=== PATIENT | female | born 1935 | race Caucasian/White ===

== ENCOUNTER 2022-05-27 11:42 | Outpatient (REF) | payer MEDICARE, SELFPAY | END 2022-05-27 11:43 | disposition home or self-care (01) | LOC: HO.MDS 11:42 | PROVIDERS: Visit Provider Internal Medicine Medical Oncology | DX: D50.9 Iron deficiency anemia, unspecified (principal) | CPT/HCPCS: 96365; J2916 ==

== ENCOUNTER 2022-06-03 08:07 | Outpatient (REF) | payer MEDICARE, SELFPAY | END 2022-06-03 08:08 | disposition home or self-care (01) | LOC: HO.MDS 08:07 | PROVIDERS: Visit Provider Internal Medicine Medical Oncology | DX: D50.9 Iron deficiency anemia, unspecified (principal) | CPT/HCPCS: 96365; J2916 ==

== ENCOUNTER 2022-06-18 08:27 | Outpatient (REF) | payer MEDICARE, SELFPAY | END 2022-06-18 08:28 | disposition home or self-care (01) | LOC: HO.MDS 08:27 | PROVIDERS: Visit Provider Internal Medicine Medical Oncology | DX: D50.9 Iron deficiency anemia, unspecified (principal) | CPT/HCPCS: 96365; J2916 ==

== ENCOUNTER 2022-06-25 09:34 | Outpatient (REF) | payer MEDICARE, SELFPAY | END 2022-06-25 09:35 | disposition home or self-care (01) | LOC: HO.MDS 09:34 | PROVIDERS: Visit Provider Internal Medicine Medical Oncology | DX: D50.9 Iron deficiency anemia, unspecified (principal) | CPT/HCPCS: 96365; J2916 ==

== ENCOUNTER → 2022-07-22 11:57 | Outpatient (BNVA) | payer MEDICARE, SELFPAY | PROVIDERS: PCP Internal Medicine; Visit Provider Internal Medicine | DX: D50.9 Iron deficiency anemia, unspecified (principal) | CPT/HCPCS: 99202 ==

== ENCOUNTER 2022-07-30 14:14 | Outpatient (REF) | payer MEDICARE, SELFPAY | END 2022-07-30 14:15 | disposition home or self-care (01) | LOC: HO.MDS 14:14 | PROVIDERS: Visit Provider Internal Medicine Medical Oncology | DX: D50.9 Iron deficiency anemia, unspecified (principal) | CPT/HCPCS: 96365; J1756 ==

== ENCOUNTER 2022-08-06 07:59 | Outpatient (REF) | payer MEDICARE, SELFPAY | END 2022-08-06 08:00 | disposition home or self-care (01) | LOC: HO.MDS 07:59 | PROVIDERS: Visit Provider Internal Medicine Medical Oncology | DX: D50.9 Iron deficiency anemia, unspecified (principal) | CPT/HCPCS: 96365; J1756 ==

== ENCOUNTER 2022-08-15 08:06 | Outpatient (REF) | payer MEDICARE, SELFPAY | END 2022-08-15 08:07 | disposition home or self-care (01) | LOC: HO.MDS 08:06 | PROVIDERS: Visit Provider Internal Medicine Medical Oncology | DX: D50.9 Iron deficiency anemia, unspecified (principal) | CPT/HCPCS: 96365; J1756 ==

== ENCOUNTER 2022-08-20 07:55 | Outpatient (REF) | payer MEDICARE, SELFPAY | END 2022-08-20 07:56 | disposition home or self-care (01) | LOC: HO.MDS 07:55 | PROVIDERS: Visit Provider Internal Medicine Medical Oncology | DX: D50.9 Iron deficiency anemia, unspecified (principal) | CPT/HCPCS: 96365; J1756 ==

== ENCOUNTER 2022-09-10 12:27 | Outpatient (REF) | payer MEDICARE, SELFPAY | END 2022-09-10 12:28 | disposition home or self-care (01) | LOC: HO.MDS 12:27 | PROVIDERS: Visit Provider Internal Medicine Medical Oncology | DX: D50.9 Iron deficiency anemia, unspecified (principal) | CPT/HCPCS: 96365; J1756 ==

== ENCOUNTER 2022-09-17 07:37 | Outpatient (REF) | payer MEDICARE, SELFPAY ==
[2022-09-17 08:10] LABS: Hematocrit 33.2 % (37.0-47.0); Hemoglobin 11.1 g/dl (12.0-16.0); Mean Corpuscular HGB Conc 33.4 g/dl (31.0-35.0); Mean Corpuscular Hemoglobin 28.4 pg (27.0-33.0); Mean Corpuscular Volume 84.9 fL (80.0-98.0); Mean Platelet Volume 9.4 fL (9.4-12.3); Platelet Count 266 X10*3/uL (160-400); Red Blood Count 3.91 X10*6/uL (4.20-5.50); Red Cell Distribution Width 15.5 % (11.0-16.0); White Blood Count 9.2 X10*3/uL (4.8-10.8)
== END 2022-09-17 07:38 | disposition home or self-care (01) ==
LOC: HO.MDS 07:37
PROVIDERS: Visit Provider Internal Medicine Medical Oncology
DX: D50.9 Iron deficiency anemia, unspecified (principal)
CPT/HCPCS: 36415; 85027; 96365; J1756

== ENCOUNTER 2022-10-31 07:50 | Day surgery (SDC) | payer MEDICARE, SELFPAY ==
--- NOTE | 2022-10-31 07:29 | P.CONAN_ITS ---
HPI - Anesthesia Eval Consult details Narrative: egd colon PMFSH Active Problems Active Problems: All Active Problems (Updated 10/29/22 @ 11:48 by Brittni Betancourt MD) Hypokalemia (Acute) Microcytic hypochromic anemia (Acute) Past Medical History Medical History (Updated 10/29/22 @ 11:48 by Brittni Betancourt MD) Diabetes Diverticulosis GERD (gastroesophageal reflux disease) HTN (hypertension) Hypercholesterolemia Hypothyroid Iron deficiency Family History Family History Mother Thoracic cancer Father Pancreatic cancer Maternal Aunt Breast cancer Family history of problems with anesthesia: No Surgical History Surgical History (Updated 10/24/22 @ 12:33 by Yanna Gilbert, RN) H/O colonoscopy History of esophagogastroduodenoscopy (EGD) Hx of cholecystectomy Hx of lithotripsy History of Problems with Anesthesia: No Social History Social History (Updated 10/24/22 @ 12:41 by Yanna Gilbert, RN) Household Members: None Housing: Apartment Are you a primary assurance services manager health care to a significant other at home: No Do you presently have visiting nurse or other home services: No Patient Tobacco Use Status: Former Tobacco user Quit Date: age 36 Tobacco use type: Cigarette service: No Current occupational status: retired Meds Allergies Allergy/AdvReac Type Severity Reaction Status Date / Time codeine Allergy Stomach Verified 08/22/22 11:07 Upset Home Medications Medication Instructions Recorded Confirmed Last Taken Type aspirin 81 mg tablet,delayed 81 mg PO DAILY 05/13/22 10/24/22 Unknown History release atorvastatin 40 mg tablet 1 tab PO DAILY 05/13/22 10/24/22 Unknown History brimonidine 0.2 % eye drops 1 drp ophthalmic-Right BID 05/13/22 10/24/22 Unknown History carvedilol 6.25 mg tablet 1 tab PO BID 05/13/22 10/24/22 Unknown History dorzolamide 2 % eye drops 1 drp ophthalmic (eye) Q12H 05/13/22 10/24/22 Unknown History insulin degludec 100 unit/mL (3 44 unit subcut DAILY 05/13/22 10/24/22 Unknown History mL) subcutaneous pen (Tresiba FlexTouch U-100 insulin) latanoprost 0.005 % eye drops 1 drp ophthalmic (eye) QPM 05/13/22 10/24/22 Unknown History levothyroxine 75 mcg tablet 1 tab PO DAILY 05/13/22 10/24/22 Unknown History (Synthroid) lisinopril 20 1 tab PO DAILY 05/13/22 10/24/22 Unknown History mg-hydrochlorothiazide 12.5 mg tablet metformin 500 mg tablet 1 tab PO BID 05/13/22 10/24/22 Unknown History pantoprazole 40 mg tablet,delayed 1 tab PO DAILY 05/13/22 10/24/22 Unknown History release semaglutide 0.25 mg or 0.5 mg (2 0.5 mg subcut QWEEK 05/13/22 10/24/22 Unknown History mg/1.5 mL) subcutaneous pen injector (Ozempic) timolol maleate 0.5 % eye drops 1 drp ophthalmic-Right Q12H 05/13/22 10/24/22 Unknown History Exam Exam Date and Time: October 31, 2022 0729 Airway Mallampati Class: II TM Dist: >3cm Heart: rr Lungs: cta Assessment and Plan Final Anesthetic Review Family History of Problems with Anesthesia: No History of Problems with Anesthesia: No NPO: Yes ASA Class: II Final Preanesthetic Review: No Changes in Pt Med Stat, Meds/Allgs Chart Reviewed, Consent Obtained/Reviewed and Anes Risks/Benef Reviewed Patient Risk: Low Procedure Risk: Low Anesthetic Plan Anesthetic Plan: MAC: Disposition: Standard PACU
[2022-10-31 07:51] VITALS: BMI 23.2
[2022-10-31] MEDS: Lactated Ringers 1,000 ML 50 ML IVCONT (08:08)
[2022-10-31 08:10] LABS: Hematocrit 28.9 % (37.0-47.0); Hemoglobin 9.9 g/dl (12.0-16.0); Mean Corpuscular HGB Conc 34.3 g/dl (31.0-35.0); Mean Corpuscular Hemoglobin 29.8 pg (27.0-33.0); Mean Platelet Volume 9.3 fL (9.4-12.3); Platelet Count 290 X10*3/uL (160-400); Red Blood Count 3.32 X10*6/uL (4.20-5.50); Red Cell Distribution Width 13.9 % (11.0-16.0); White Blood Count 12.5 X10*3/uL (4.8-10.8)
--- NOTE | 2022-10-31 08:10 | HO.ANESPROP2 ---
[facility] Active Problems Active Problems: All Active Problems (Updated 10/29/22 @ 11:48 by Brittni Betancourt MD) Hypokalemia (Acute) Microcytic hypochromic anemia (Acute) Past Medical History Medical History (Updated 10/29/22 @ 11:48 by Brittni Betancourt MD) Diabetes Diverticulosis GERD (gastroesophageal reflux disease) HTN (hypertension) Hypercholesterolemia Hypothyroid Iron deficiency Family History Family History Mother Thoracic cancer Father Pancreatic cancer Maternal Aunt Breast cancer Family history of problems with anesthesia: No Surgical History Surgical History (Updated 10/24/22 @ 12:33 by Yanna Gilbert RN) H/O colonoscopy History of esophagogastroduodenoscopy (EGD) Hx of cholecystectomy Hx of lithotripsy History of Problems with Anesthesia: No Social History Social History (Updated 10/24/22 @ 12:41 by Yanna Gilbert RN) Household Members: None Housing: Apartment Are you a primary memory care program director to a significant other at home: No Do you presently have visiting nurse or other home services: No Patient Tobacco Use Status: Former Tobacco user Quit Date: age 36 Tobacco use type: Cigarette Are you DNR?: No Advance Directives: No Advance Directives Information Provided: Yes Nutrition Risks: No Nutritional Risk service: No Current occupational status: retired Meds Allergies Allergy/AdvReac Type Severity Reaction Status Date / Time codeine Allergy Stomach Verified 08/22/22 11:07 Upset Active Medications: Current Medications Lactated Ringer's (Lr) 1,000 mls @ 50 mls/hr IVCONT .Q20H CHIN Last Admin: 10/31/22 08:08 Dose: 50 mls/hr Home Medications Medication Instructions Recorded Confirmed Last Taken Type aspirin 81 mg tablet,delayed 81 mg PO DAILY 05/13/22 10/24/22 Unknown History release atorvastatin 40 mg tablet 1 tab PO DAILY 05/13/22 10/24/22 Unknown History brimonidine 0.2 % eye drops 1 drp ophthalmic-Right BID 05/13/22 10/24/22 Unknown History carvedilol 6.25 mg tablet 1 tab PO BID 05/13/22 10/24/22 Unknown History dorzolamide 2 % eye drops 1 drp ophthalmic (eye) Q12H 05/13/22 10/24/22 Unknown History insulin degludec 100 unit/mL (3 44 unit subcut DAILY 05/13/22 10/24/22 Unknown History mL) subcutaneous pen (Tresiba FlexTouch U-100 insulin) latanoprost 0.005 % eye drops 1 drp ophthalmic (eye) QPM 05/13/22 10/24/22 Unknown History levothyroxine 75 mcg tablet 1 tab PO DAILY 05/13/22 10/24/22 Unknown History (Synthroid) lisinopril 20 1 tab PO DAILY 05/13/22 10/24/22 Unknown History mg-hydrochlorothiazide 12.5 mg tablet metformin 500 mg tablet 1 tab PO BID 05/13/22 10/24/22 Unknown History pantoprazole 40 mg tablet,delayed 1 tab PO DAILY 05/13/22 10/24/22 Unknown History release semaglutide 0.25 mg or 0.5 mg (2 0.5 mg subcut QWEEK 05/13/22 10/24/22 Unknown History mg/1.5 mL) subcutaneous pen injector (Ozempic) timolol maleate 0.5 % eye drops 1 drp ophthalmic-Right Q12H 05/13/22 10/24/22 Unknown History Exam Exam Date and Time: October 31, 2022 0810 Height,Weight and Vital Signs: Height 5 ft 3 in Weight 59.421 kg Airway Mallampati Class: III TM Dist: >3cm Neck ROM: Full Assessment and Plan Assessment Anesthesia Assessment: Anesthesia Plan Discussed and Chart Reviewed Final Anesthetic Review Family History of Problems with Anesthesia: No History of Problems with Anesthesia: No NPO: Yes ASA Class: II Final Preanesthetic Review: No Changes in Pt Med Stat, Meds/Allgs Chart Reviewed, Consent Obtained/Reviewed and Anes Risks/Benef Reviewed Patient Risk: Low Procedure Risk: Low Anesthetic Plan Anesthetic Plan: MAC: Disposition: Standard PACU
[2022-10-31 08:11] LABS: Glucose, Whole Blood 164 mg/dL (60-115)
--- NOTE | 2022-10-31 08:13 | MHC.SHP ---
Pre-Procedural Eval Section A Date of Service: 10/31/22 Section B Chief Complaint: Iron deficiency anemia, Details of Present Illness: 86 y.o F here for EGD/colo for eval Relevant Social History: None Present Medications: see Short Stay Collaborative assessment Medical History: No relevant PMH History of Previous Operations: No relevant previous surgery Allergies: Allergies Allergy/AdvReac Type Severity Reaction Status Date / Time codeine Allergy Stomach Verified 08/22/22 11:07 Upset Review of Systems Review of Systems Comment: 10 point ROS negative except as noted above Exam Exam Comment: Gen appear: No acute distress, well nourished HEENT: no icterus Chest: No overt resp distress Abd: soft, nontender, nondistended Psych: Stable affect, answering questions appropriately Neuro: A/Ox3 noted to move all extremities spontaneously Ext: no peripheral edema Plan Diagnosis/Plan: Unchanged I have reviewed the history and physical and performed a pertinent physical examination on my patient. No changes have occurred unless specified. Time Spent With Patient Time: Total time managing care of this patient today ____ minutes.
[2022-10-31 08:22] VITALS: BP 157/61; PULSE 102; RESP 18; TEMP 36.5; O2SAT 97
[2022-10-31 08:38] LABS: Base Excess Bedside Calculated -1 mmol/L (-3-3); Glucose, i-STAT 179 mg/dL (60-115); HCO3 Bedside Calculated 23 mmol/L (22-26); Hematocrit Bedside 27 %PCV (37-47); Hemoglobin Bedside 9.2 g/dL (12.0-16.0); Potassium Bedside 2.8 mmol/L (3.3-5.1); SO2 Bedside Calculated 90 %; Sodium Bedside 137 mmol/L (135-145); TCO2 Bedside 23 mmol/L (24-29); pCO2 Bedside 31 mmhg (35-48); pH Bedside 7.48 (7.35-7.45); pO2 Bedside 54 mmhg (83-108)
--- NOTE | 2022-10-31 08:39 | PC.NURSE ---
Author asked patient how her holiday was - patient stated I was in [facility] due to a fall at my son's house. My potassium was very low. I called Dr. Betancourt's office yesterday. Dr. Gallo updated. Stat potassium drawn at bedside via I-stat. Result was 2.8. Dr. Gallo at bedside. Stated okay to proceed. LR opened wide. Dr. Green aware as well.
--- NOTE | 2022-10-31 08:46 | HO.ANESPROP2 ---
[facility] Active Problems Active Problems: All Active Problems (Updated 10/29/22 @ 11:48 by Brittni Betancourt MD) Hypokalemia (Acute) Microcytic hypochromic anemia (Acute) Past Medical History Medical History (Updated 10/29/22 @ 11:48 by Brittni Betancourt MD) Diabetes Diverticulosis GERD (gastroesophageal reflux disease) HTN (hypertension) Hypercholesterolemia Hypothyroid Iron deficiency Family History Family History Mother Thoracic cancer Father Pancreatic cancer Maternal Aunt Breast cancer Family history of problems with anesthesia: No Surgical History Surgical History (Updated 10/24/22 @ 12:33 by Yanna Gilbert RN) H/O colonoscopy History of esophagogastroduodenoscopy (EGD) Hx of cholecystectomy Hx of lithotripsy History of Problems with Anesthesia: No Social History Social History (Updated 10/24/22 @ 12:41 by Yanna Gilbert RN) Household Members: None Housing: Apartment Are you a primary field care coordinator to a significant other at home: No Do you presently have visiting nurse or other home services: No Patient Tobacco Use Status: Former Tobacco user Quit Date: age 36 Tobacco use type: Cigarette Are you DNR?: No Advance Directives: No Advance Directives Information Provided: Yes Nutrition Risks: No Nutritional Risk service: No Current occupational status: retired Meds Allergies Allergy/AdvReac Type Severity Reaction Status Date / Time codeine Allergy Stomach Verified 08/22/22 11:07 Upset Active Medications: Current Medications Lactated Ringer's (Lr) 1,000 mls @ 50 mls/hr IVCONT .Q20H CHIN Last Admin: 10/31/22 08:08 Dose: 50 mls/hr Home Medications Medication Instructions Recorded Confirmed Last Taken Type aspirin 81 mg tablet,delayed 81 mg PO DAILY 05/13/22 10/24/22 Unknown History release atorvastatin 40 mg tablet 1 tab PO DAILY 05/13/22 10/24/22 Unknown History brimonidine 0.2 % eye drops 1 drp ophthalmic-Right BID 05/13/22 10/24/22 Unknown History carvedilol 6.25 mg tablet 1 tab PO BID 05/13/22 10/24/22 Unknown History dorzolamide 2 % eye drops 1 drp ophthalmic (eye) Q12H 05/13/22 10/24/22 Unknown History insulin degludec 100 unit/mL (3 44 unit subcut DAILY 05/13/22 10/24/22 Unknown History mL) subcutaneous pen (Tresiba FlexTouch U-100 insulin) latanoprost 0.005 % eye drops 1 drp ophthalmic (eye) QPM 05/13/22 10/24/22 Unknown History levothyroxine 75 mcg tablet 1 tab PO DAILY 05/13/22 10/24/22 Unknown History (Synthroid) lisinopril 20 1 tab PO DAILY 05/13/22 10/24/22 Unknown History mg-hydrochlorothiazide 12.5 mg tablet metformin 500 mg tablet 1 tab PO BID 05/13/22 10/24/22 Unknown History pantoprazole 40 mg tablet,delayed 1 tab PO DAILY 05/13/22 10/24/22 Unknown History release semaglutide 0.25 mg or 0.5 mg (2 0.5 mg subcut QWEEK 05/13/22 10/24/22 Unknown History mg/1.5 mL) subcutaneous pen injector (Ozempic) timolol maleate 0.5 % eye drops 1 drp ophthalmic-Right Q12H 05/13/22 10/24/22 Unknown History Exam Exam Date and Time: October 31, 2022 0846 Height,Weight and Vital Signs: Height 5 ft 3 in Weight 59.421 kg Last Vital Signs Temp 97.7 F 10/31/22 08:22 Pulse 102 H 10/31/22 08:22 Resp 18 10/31/22 08:22 BP 157/61 H 10/31/22 08:22 Pulse Ox 97 10/31/22 08:22 O2 Del Method 10/31/22 08:22 Pertinent Lab Results Pertinent Lab Results: Laboratory Tests 10/31/22 10/31/22 10/31/22 08:05 08:06 08:28 WBC 12.5 H RBC 3.32 L Hgb 9.9 L POC Hgb (Calc) 9.2 L Hct 28.9 L POC Hct 27 L MCV 87.0 MCH 29.8 MCHC 34.3 RDW 13.9 Plt Count 290 MPV 9.3 L Absolute Nucleated RBC 0.000 Nucleated RBC % (auto) 0.0 POC Std Base Excess -1 POC O2 Sat (Calc) 90 POC ABG pO2 54 L POC ABG Total CO2 23 L POC Capillary pH 7.48 H POC Capillary pCO2 31 L POC Cap HCO3 (Calc) 23 POC Sodium 137 POC Potassium 2.8 L POC Glucose 164 H 179 H Airway Mallampati Class: II TM Dist: >3cm Heart: rr Lungs: cta Assessment and Plan Final Anesthetic Review Family History of Problems with Anesthesia: No History of Problems with Anesthesia: No ASA Class: II Final Preanesthetic Review: No Changes in Pt Med Stat, Meds/Allgs Chart Reviewed, Consent Obtained/Reviewed and Anes Risks/Benef Reviewed Patient Risk: Low Procedure Risk: Low Anesthetic Plan Anesthetic Plan: MAC: Disposition: Standard PACU and Inp. Admit - IMC
--- NOTE | 2022-10-31 09:20 | P.OP_ITS ---
Operative Note Operative Note Date of Service: 10/31/22 Narrative: Procedure:?Esophagogastroduodenoscopy and Colonoscopy Indication:?Iron deficiency anemia Endoscopist:?Brittni Betancourt MD Anesthesia Provider:?Dr Rosemary Green Anesthesia type:?MAC Instrument:?Olympus GIF-H190 and PCF-H190L ?? EGD Procedure:?? The procedure, indications, preparation and potential complications were reviewed with the patient, who indicated understanding and gave written informed consent to proceed. A physical exam was performed. The endoscope was introduced through the mouth, and advanced to the third part of duodenum. The mucosa was carefully examined on slow withdrawal of the endoscope. The patient tolerated the procedure well. There were no immediate complications.? ? EGD Findings:? * Esophagus:? Normal mucosa noted in the entire esophagus. The Z line was at 38 cm. A small hiatal hernia was present with the diaphragmatic pinch at 40 cm. * Stomach:? Erythema and edema of mucosa was noted in the fundus and body. Random cold forceps gastric biopsies were taken to rule out H Pylori infection.? * Duodenum:? Normal mucosa was noted in the whole of the examined duodenum. Cold forceps biopsies were taken from duodenal bulb and second portion of the duodenum to rule out celiac sprue. Colonoscopy Procedure:? The patient was then turned for the colonoscopy. A digital rectal exam was performed which was abnormal due to external hemorrhoids. The colonoscope was then inserted through the anus and advanced through the colon to the cecum at 75 cm. The appendiceal orifice and ileocecal valve was identified.? Mucosa was carefully examined under high definition white light as the instrument was slowly withdrawn in a retrograde panoramic fashion. Retroflexion was performed in rectum. The procedure was not difficult. There were no immediate obvious complications. The quality of the prep was BBPS: 3+2+3 = adequate Withdrawal time 16 minutes. 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 Argon plasma coagulation was applied which prompted oozing from the AVM. Complete ablation was performed with hemostasis. Loss of normal vascular pattern noted in sigmoid colon from 37 cm to 15 cm likely due to diverticulosis. Protruding lesions: * 1 sessile polyp of size 5 mm was noted in transverse colon. Cold snare polypectomy was performed. The polyp was completely removed and retrieved. * ?Medium internal hemorrhoids stigmata of recent bleeding.? Excavated lesions: * Numerous medium and large mouthed diverticula noted in sigmoid colon. Impression:? * Normal esophagus * Hiatal hernia * Abnormal mucosa in stomach body and fundus (biopsy) * Normal duodenum (biopsy) * Ascending colon AVM (APC) * Transverse colon polyp (polypectomy) * Sigmoid diverticulosis with subtle mucosal changes * Internal and external hemorrhoids Recommendations:?? * Hold off capsule endoscopy for now given finding of large R colon AVM. Recheck CBC in 4-6 weeks and if improving, this was the likely etiology for GORDO. However, if H/H continues to downtrend, will proceed with VCE. * Follow biopsy results. Our office will call or send a letter with results within 7-10 days.? * If H pylori +, patient will be prescribed eradication therapy followed by test of cure. * Avoid NSAIDs. * Further colonoscopy for CRC screening not recommended due to age. Above has been reviewed with the patient. Relevant educational hand outs were provided at discharge.?
[2022-10-31 09:29] VITALS: BP 115/52; PULSE 67; RESP 14; TEMP 36.3; O2SAT 96
[2022-10-31 09:44] VITALS: BP 116/54; PULSE 85; RESP 16; O2SAT 94
[2022-10-31 09:59] VITALS: BP 121/52; PULSE 77; RESP 14; TEMP 36.4; O2SAT 94
== END 2022-10-31 10:44 | disposition home or self-care (01) ==
PROVIDERS: Anesthesiology; PCP Nurse Practitioner Adult Health; Visit Provider Internal Medicine
PROC: (CPT 45388; principal; 2022-10-31 08:20)
DX: D50.9 Iron deficiency anemia, unspecified (principal); D12.3 Benign neoplasm of transverse colon; K64.8 Other hemorrhoids; K64.4 Residual hemorrhoidal skin tags; K55.20 Angiodysplasia of colon without hemorrhage; K57.30 Diverticulosis of large intestine without perforation or abscess without bleeding; K21.9 Gastro-esophageal reflux disease without esophagitis; K44.9 Diaphragmatic hernia without obstruction or gangrene; I10 Essential (primary) hypertension; E11.8 Type 2 diabetes mellitus with unspecified complications; Z79.4 Long term (current) use of insulin; E78.5 Hyperlipidemia, unspecified; R53.83 Other fatigue; Z90.49 Acquired absence of other specified parts of digestive tract; Z79.899 Other long term (current) drug therapy; Z79.82 Long term (current) use of aspirin; Z88.8 Allergy status to other drugs, medicaments and biological substances; Z87.891 Personal history of nicotine dependence
CPT/HCPCS: 45388; 45385; 43239; 36415; 82947; 85027; 88305; 88342

== ENCOUNTER → 2022-11-13 15:10 | Outpatient (BNVA) | payer MEDICARE, SELFPAY | PROVIDERS: PCP Nurse Practitioner Adult Health; Visit Provider Internal Medicine | DX: D50.9 Iron deficiency anemia, unspecified (principal); K55.20 Angiodysplasia of colon without hemorrhage; K57.90 Diverticulosis of intestine, part unspecified, without perforation or abscess without bleeding | CPT/HCPCS: 99212 ==

== ENCOUNTER 2022-11-26 13:21 | Outpatient (REF) | payer MEDICARE, SELFPAY ==
[2022-11-26 13:51] LABS: Hemoglobin 12.3 g/dl (12.0-16.0); Mean Corpuscular HGB Conc 33.2 g/dl (31.0-35.0); Mean Corpuscular Hemoglobin 29.9 pg (27.0-33.0); Mean Platelet Volume 10.5 fL (9.4-12.3); Platelet Count 270 X10*3/uL (160-400); Red Blood Count 4.11 X10*6/uL (4.20-5.50); Red Cell Distribution Width 13.6 % (11.0-16.0); White Blood Count 9.3 X10*3/uL (4.8-10.8)
[2022-11-26 14:13] LABS: Anion Gap 16 (12-20); Blood Urea Nitrogen 17 mg/dL (9-16); Carbon Dioxide 29 mmol/L (22-29); Chloride 100 mmol/L (96-108); Estimated Glomerular Filt Rate > 60; Glucose Random 180 mg/dL (60-115); Potassium 3.6 mmol/L (3.3-5.1); Sodium 141 mmol/L (135-145)
== END 2022-11-26 13:22 | disposition home or self-care (01) ==
LOC: HO.LAB 13:21
PROVIDERS: Visit Provider Internal Medicine
DX: E87.6 Hypokalemia (principal); D50.9 Iron deficiency anemia, unspecified
CPT/HCPCS: 36415; 80048; 85027

== ENCOUNTER 2023-02-17 13:34 | Emergency (ER) | payer MEDICARE, SELFPAY ==
--- NOTE | ~2023-02-17 | CT_ITS ---
EXAMINATION: CT HEAD WITHOUT CONTRAST CLINICAL INFORMATION: Headache COMPARISON: None available. TECHNIQUE: Contiguous axial imaging was performed from the skull base to vertex without intravenous administration of contrast. This CT examination was performed using dose optimization techniques as appropriate, variously including the following: *Automated exposure control *Adjustment of mA and/or kV according to patient size (this includes techniques or standardized protocols for targeted exams where dose is matched to indication/reason for exam; i.e. extremities or head) *Use of iterative reconstruction technique DLP: 584 mGy-cm FINDINGS: There is no evidence of an extra-axial collection. There is no evidence of intra or extra-axial hemorrhage. The ventricles and extra-axial CSF spaces are prominent suggestive of mild generalized atrophy. There is nonspecific periventricular white matter disease. There is a left thalamic lacunar infarct. No prior exams are available for comparison and this is age indeterminate. No mass or mass effect is seen. Review of bone windows is normal. No skull fracture. Paranasal sinuses, mastoid air cells and middle ears are clear. CT/CT head/brain wo IV con IMPRESSION: Generalized atrophy and nonspecific periventricular white matter disease. Age-indeterminate left thalamic lacunar infarct.
[2023-02-17 14:14] VITALS: BP 227/72; PULSE 79; RESP 18; TEMP 36.7; O2SAT 96; BMI 23.0
--- NOTE | 2023-02-17 14:15 | ED_ITS ---
HPI - General Adult General Chief complaint: General Medical <MEDARDO Bojorquez - Last Filed: 02/17/23 14:20> Stated complaint: HBP/L arm pain/Slight headache <MEDARDO Bojorquez - Last Filed: 02/17/23 14:20> Time Seen by Provider: 02/17/23 20:17 <MEDARDO Bojorquez - Last Filed: 02/17/23 14:20> Source: patient <Nico Lynch MD - Last Filed: 02/17/23 22:25> Mode of arrival: ambulatory <Nico Lynch MD - Last Filed: 02/17/23 22:25> Limitations: no limitations <Nico Lynch MD - Last Filed: 02/17/23 22:25> History of Present Illness HPI narrative: 87-year-old female with history of diabetes, hypertension presents with elevated blood pressure. Symptomatic leak, patient has had bitemporal headache that is intermittent in nature. She has had no vision changes. The headache was not sudden in onset. There is no neck pain or stiffness. Patient describes the headache as [id number]. There is no photo or phonophobia. No fevers or chills. No nausea vomiting. Additionally, patient is complaining of elevated blood pressure. This morning, patient was not feeling generally well. She took her blood pressure noted to be in the 190s over 70s. She took her blood pressure again later and of increased even more. She then noted having s ome left arm discomfort. That lasted briefly. Was not associated with nausea, vomiting, jaw pain, chest pain, shortness of breath, lightheadedness or any other symptoms. At this point she has no symptoms including no headache or arm pain/chest pain. Patient is compliant with her medications. She does remember having high sodium general last night is wondering if that could have caused her symptoms. <Nico Lynch MD - Last Filed: 02/17/23 22:25> Related Data Home medications: Home Medications Medication Instructions Recorded Confirmed aspirin 81 mg tablet,delayed 81 mg PO DAILY 05/13/22 12/06/22 release atorvastatin 40 mg tablet 1 tab PO DAILY 05/13/22 12/06/22 carvedilol 6.25 mg tablet 1 tab PO BID 05/13/22 12/06/22 dorzolamide 2 % eye drops 1 drp ophthalmic (eye) Q12H 05/13/22 12/06/22 insulin degludec 100 unit/mL (3 44 unit subcut DAILY 05/13/22 12/06/22 mL) subcutaneous pen (Tresiba FlexTouch U-100 insulin) latanoprost 0.005 % eye drops 1 drp ophthalmic (eye) QPM 05/13/22 12/06/22 levothyroxine 75 mcg tablet 1 tab PO DAILY 05/13/22 12/06/22 (Synthroid) lisinopril 20 1 tab PO DAILY 05/13/22 12/06/22 mg-hydrochlorothiazide 12.5 mg tablet metformin 500 mg tablet 1 tab PO BID 05/13/22 12/06/22 pantoprazole 40 mg tablet,delayed 1 tab PO DAILY 05/13/22 12/06/22 release semaglutide 0.25 mg or 0.5 mg (2 0.5 mg subcut QWEEK 05/13/22 12/06/22 mg/1.5 mL) subcutaneous pen injector (Ozempic) Previous Rx's Medication Instructions Recorded amlodipine 5 mg tablet 5 mg PO DAILY #7 tabs 02/17/23 <MEDARDO Bojorquez - Last Filed: 02/17/23 14:20> Allergies/adverse reactions: Allergies Allergy/AdvReac Type Severity Reaction Status Date / Time codeine Allergy Stomach Verified 12/06/22 13:24 Upset <MEDARDO Bojorquez - Last Filed: 02/17/23 14:20> [facility] Past Medical History Medical History: Medical History Diabetes Diverticulosis GERD (gastroesophageal reflux disease) HTN (hypertension) Hypercholesterolemia Hypothyroid Iron deficiency <MEDARDO Bojorquez - Last Filed: 02/17/23 14:20> Surgical History: Surgical History H/O colonoscopy History of esophagogastroduodenoscopy (EGD) Hx of cholecystectomy Hx of lithotripsy <MEDARDO Bojorquez - Last Filed: 02/17/23 14:20> Family History Family History: Family History Mother Thoracic cancer Father Pancreatic cancer Maternal Aunt Breast cancer <MEDARDO Bojorquez - Last Filed: 02/17/23 14:20> Social History Social History: Social History Household Members: None Housing: Apartment Are you a primary home day care provider to a significant other at home: No Do you presently have visiting nurse or other home services: No Patient Tobacco Use Status: Former Tobacco user Quit Date: age 36 Tobacco use type: Cigarette Advance Directives: Yes Advance Directives Information Provided: No Advance Directives on File: No service: No Current occupational status: retired <MEDARDO Bojorquez - Last Filed: 02/17/23 14:20> Physical Exam ED Vital Signs: Vital Signs - 24 hr 02/17/23 14:14 02/17/23 19:47 02/17/23 20:12 Temperature 98.0 F 97.8 F 98.2 F Pulse Rate 79 78 69 Respiratory Rate 18 18 18 Blood Pressure 227/72 H 216/99 H 206/72 H Pulse Oximetry 96 96 95 Oxygen Delivery Method Room Air Room Air Room Air 02/17/23 20:19 02/17/23 20:50 Temperature 94.8 F L Pulse Rate 66 Respiratory Rate 15 Blood Pressure 200/70 H Pulse Oximetry 96 Oxygen Delivery Method Room Air BMI result Body Mass Index 23.0 <MEDARDO Bojorquez - Last Filed: 02/17/23 14:20> Vital Signs - 24 hr 02/17/23 14:14 02/17/23 19:47 02/17/23 20:12 Temperature 98.0 F 97.8 F 98.2 F Pulse Rate 79 78 69 Respiratory Rate 18 18 18 Blood Pressure 227/72 H 216/99 H 206/72 H Pulse Oximetry 96 96 95 Oxygen Delivery Method Room Air Room Air Room Air 02/17/23 20:19 02/17/23 20:50 Temperature 94.8 F L Pulse Rate 66 Respiratory Rate 15 Blood Pressure 200/70 H Pulse Oximetry 96 Oxygen Delivery Method Room Air BMI result Body Mass Index 23.0 <Nico Lynch MD - Last Filed: 02/17/23 22:25> GEN: Well developed, no acute distress, alert, oriented HEENT: Normocephalic, atraumatic, normal external ears, nose appears normal, no oropharyngeal edema or exudates Eyes: Normal to appearance Neck: Supple, no lymphadenopathy Respiratory: Talks in complete sentences, no respiratory distress, clear to auscultation bilaterally Cardiovascular: Regular rate and rhythm, no murmurs rubs or gallops Abdomen: Soft, nontender, nondistended, no guarding, no rebound Back: No CVA tenderness Extremities: No clubbing cyanosis or edema Neurologic: No focal neurologic deficits, cranial nerves 2-12 intact, strength is 5/5 bilaterally, gait normal Skin: No rash <Nico Lynch MD - Last Filed: 02/17/23 22:25> Course Course Course Narrative: RME - 87yo female with history of HTN, HDL, diabetes, and thyroid problems presenting for headache for 3 days and high blood pressure which reached SBP of 240 at home. She stated her blood pressure is usually around 140. Patient stated that she had an episode of left arm heaviness today. She stated she took her HTN medications today. Denies chest pain. BP in triage was 227/72 Plan: ECG, labs, UA <MEDARDO Bojorquez - Last Filed: 02/17/23 14:20> Reevaluation(s) Reevaluation #1: Patient's blood pressure continues to be elevated. At this point, will replace her potassium and magnesium. Will provide her with lisinopril and m etoprolol. Patient also would benefit from a troponin given her left arm symptoms and history of diabetes. I did discuss results of her CT scan it included the lacunar infarcts. She is currently on aspirin and statin therapy which is appropriate at this time. 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 I have recommended that she follow-up with a personal service representative for an echocardiogram and further evaluation. <Nico Lynch MD - Last Filed: 02/17/23 22:25> Time: 20:35 <Nico Lynch MD - Last Filed: 02/17/23 22:25> Reevaluation #2: Cardiac enzymes are negative. Since her symptoms are early this morning, negative troponin is centrally rule out acute coronary syndrome. However, patient's blood pressure continues to be markedly elevated. Last blood pressure was 200/70. She did have medications approximately 1 hour ago. Would consider clonidine at this point. <Nico Lynch MD - Last Filed: 02/17/23 22:25> Time: 21:57 <Nico Lynch MD - Last Filed: 02/17/23 22:25> Reevaluation #3: BP continues to be elevated. WIll try amlodipine [address] Lord to follow up on BP. If sysolic 160s can be discharged with follow up. Discussed with patient. Rx sent to her pharmacy. <Nico Lynch MD - Last Filed: 02/17/23 22:25> Time: 22:24 <Nico Lynch MD - Last Filed: 02/17/23 22:25> Medications Administered Discontinued Medications Generic Name Dose Route Start Last Admin Trade Name Freq PRN Reason Stop Dose Admin Lisinopril 10 mg 02/17/23 20:31 02/17/23 20:50 Lisinopril 10 Mg Tablet PO 02/17/23 20:32 10 mg ONCE ONE Administration Protocol Magnesium Oxide 400 mg 02/17/23 20:18 02/17/23 20:25 Magnesium Oxide 400 Mg Tablet PO 02/17/23 20:19 400 mg ONCE ONE Administration Metoprolol Tartrate 25 mg 02/17/23 20:31 02/17/23 20:50 Metoprolol Tartrate 25 Mg Tablet PO 02/17/23 20:32 25 mg ONCE ONE Administration Protocol Potassium Chloride 40 meq 02/17/23 20:18 02/17/23 20:25 Potassium Chloride Packet 20 Meq Packet PO 02/17/23 20:19 40 meq ONCE ONE Administration <MEDARDO Bojorquez - Last Filed: 02/17/23 14:20> Medications Administered Discontinued Medications Generic Name Dose Route Start Last Admin Trade Name Freq PRN Reason Stop Dose Admin Lisinopril 10 mg 02/17/23 20:31 02/17/23 20:50 Lisinopril 10 Mg Tablet PO 02/17/23 20:32 10 mg ONCE ONE Administration Protocol Magnesium Oxide 400 mg 02/17/23 20:18 02/17/23 20:25 Magnesium Oxide 400 Mg Tablet PO 02/17/23 20:19 400 mg ONCE ONE Administration Metoprolol Tartrate 25 mg 02/17/23 20:31 02/17/23 20:50 Metoprolol Tartrate 25 Mg Tablet PO 02/17/23 20:32 25 mg ONCE ONE Administration Protocol Potassium Chloride 40 meq 02/17/23 20:18 02/17/23 20:25 Potassium Chloride Packet 20 Meq Packet PO 02/17/23 20:19 40 meq ONCE ONE Administration <Nico Lynch MD - Last Filed: 02/17/23 22:25> Medical Decision Making Medical Decision Making MDM Narrative: 87-year-old female with diabetes, hypertension presents with hypertensive urgency. She did have symptoms which included headache and left arm discomfort. She is currently asymptomatic. She remains hypertensive. This certainly could be due to dietary noncompliance. She is apparently compliant with her medication regimen. Patient will have an EKG, CT scan of the head, laboratory a nalysis to rule out kidney dysfunction or other electrolyte abnormalities such as hypokalemia which can cause elevated blood pressure patient will require some medical management of her blood pressure and close follow-up assuming everything is okay <Nico Lynch MD - Last Filed: 02/17/23 22:25> Differential Diagnosis Differential Diagnoses: The differential diagnosis associated with the presentation includes (Hypertensive urgency, hypertensive emergency, hypokalemia, electrolyte abnormality, cardiac abnormality) <Nico Lynch MD - Last Filed: 02/17/23 22:25> Hypertensive urgency <Nico Lynch MD - Last Filed: 02/17/23 22:25> Admission/Observation Consideration of admission/observation: Escalation of care including admission/observation considered <Nico Lynch MD - Last Filed: 02/17/23 22:25> Lab Data [facility] Lab Attestation statement: I reviewed the patient's lab results. <Nico Lynch MD - Last Filed: 02/17/23 22:25> Result Diagrams: 02/17/23 14:45 02/17/23 14:45 <MEDARDO Bojorquez - Last Filed: 02/17/23 14:20> Labs: Lab Results 02/17/23 02/17/23 02/17/23 Range/Units 14:45 14:45 14:51 WBC 8.9 (4.8-10.8) X10*3/uL RBC 4.60 (4.20-5.50) X10*6/uL Hgb 13.3 (12.0-16.0) g/dl Hct 39.4 (37.0-47.0) % MCV 85.7 (80.0-98.0) fL MCH 28.9 (27.0-33.0) pg MCHC 33.8 (31.0-35.0) g/dl RDW 12.3 (11.0-16.0) % Plt Count 271 (160-400) X10*3/uL MPV 9.8 (9.4-12.3) fL Immature Gran % (Auto) 0.4 (0.0-0.4) % Neut % (Auto) 64.1 (45-73) % Lymph % (Auto) 24.2 (20-40) % [place] % (Auto) 8.6 (2-11) % Eos % (Auto) 2.5 (0-4) % Baso % (Auto) 0.2 (0-2) % Lymph # (Auto) 2.2 (1.2-4.9) X10*3/uL [place] # (Auto) 0.8 (0.1-1.2) X10*3/uL Eos # (Auto) 0.2 (0.0-0.4) X10*3/uL Baso # (Auto) 0.0 (0.0-0.2) X10*3/uL Abs Immat Gran (auto) 0.04 H (0.00-0.03) X10*3/uL Absolute Neuts (auto) 5.7 (2.0-8.3) x10*3/uL Absolute Nucleated RBC 0.000 (0.0-0.012) X10*3/uL Nucleated RBC % (auto) 0.0 (0.0-0.2) /100WBC Sodium 143 (135-145) mmol/L Potassium 3.2 L (3.3-5.1) mmol/L Chloride 102 (96-108) mmol/L Carbon Dioxide 30 H (22-29) mmol/L Anion Gap 14 (12-20) BUN 13 (9-16) mg/dL Creatinine 0.79 (0.5-1.4) mg/dL Estim Creat Clear Calc 43.0 Estimated GFR > 60 POC Glucose (60-115) mg/dL Random Glucose 119 H (60-115) mg/dL Calcium 9.8 (8.4-10.2) mg/dL Magnesium 1.5 L (1.6-2.6) mg/dL Total Bilirubin 1.0 (0.0-1.0) mg/dL Direct Bilirubin 0.2 (0.0-0.5) mg/dL AST 14 (5-31) U/L ALT 19 (0-31) U/L Alkaline Phosphatase 92 (39-117) U/L Troponin I High Sens (<3.5-17.0) ng/L Total Protein 6.5 (6.5-8.0) g/dL Albumin 4.0 (3.5-5.0) g/dL Urine Color Yellow Urine Appearance Clear Urine pH 7.0 (5.0-9.0) Ur Specific [place] 1.010 (1.005-1.025) Urine Protein Negative (Neg-Trace) mg/dL Urine Glucose (UA) Negative (Negative) mg/dL Urine Ketones Negative (Negative) mg/dL Urine Blood Negative (Negative) Urine Nitrite Negative (Negative) Ur Leukocyte Esterase Negative (Negative) 02/17/23 02/17/23 Range/Units 19:53 20:52 WBC (4.8-10.8) X10*3/uL RBC (4.20-5.50) X10*6/uL Hgb (12.0-16.0) g/dl Hct (37.0-47.0) % MCV (80.0-98.0) fL MCH (27.0-33.0) pg MCHC (31.0-35.0) g/dl RDW (11.0-16.0) % Plt Count (160-400) X10*3/uL MPV (9.4-12.3) fL Immature Gran % (Auto) (0.0-0.4) % Neut % (Auto) (45-73) % Lymph % (Auto) (20-40) % [place] % (Auto) (2-11) % Eos % (Auto) (0-4) % Baso % (Auto) (0-2) % Lymph # (Auto) (1.2-4.9) X10*3/uL [place] # (Auto) (0.1-1.2) X10*3/uL Eos # (Auto) (0.0-0.4) X10*3/uL Baso # (Auto) (0.0-0.2) X10*3/uL Abs Immat Gran (auto) (0.00-0.03) X10*3/uL Absolute Neuts (auto) (2.0-8.3) x10*3/uL Absolute Nucleated RBC (0.0-0.012) X10*3/uL Nucleated RBC % (auto) (0.0-0.2) /100WBC Sodium (135-145) mmol/L Potassium (3.3-5.1) mmol/L Chloride (96-108) mmol/L Carbon Dioxide (22-29) mmol/L Anion Gap (12-20) BUN (9-16) mg/dL Creatinine (0.5-1.4) mg/dL Estim Creat Clear Calc Estimated GFR POC Glucose 118 H (60-115) mg/dL Random Glucose (60-115) mg/dL Calcium (8.4-10.2) mg/dL Magnesium (1.6-2.6) mg/dL Total Bilirubin (0.0-1.0) mg/dL Direct Bilirubin (0.0-0.5) mg/dL AST (5-31) U/L ALT (0-31) U/L Alkaline Phosphatase (39-117) U/L Troponin I High Sens < 2.7 (<3.5-17.0) ng/L Total Protein (6.5-8.0) g/dL Albumin (3.5-5.0) g/dL Urine Color Urine Appearance Urine pH (5.0-9.0) Ur Specific [place] (1.005-1.025) Urine Protein (Neg-Trace) mg/dL Urine Glucose (UA) (Negative) mg/dL Urine Ketones (Negative) mg/dL Urine Blood (Negative) Urine Nitrite (Negative) Ur Leukocyte Esterase (Negative) <MEDARDO Bojorquez - Last Filed: 02/17/23 14:20> Lab Results 02/17/23 02/17/23 02/17/23 Range/Units 14:45 14:45 14:51 WBC 8.9 (4.8-10.8) X10*3/uL RBC 4.60 (4.20-5.50) X10*6/uL Hgb 13.3 (12.0-16.0) g/dl Hct 39.4 (37.0-47.0) % MCV 85.7 (80.0-98.0) fL MCH 28.9 (27.0-33.0) pg MCHC 33.8 (31.0-35.0) g/dl RDW 12.3 (11.0-16.0) % Plt Count 271 (160-400) X10*3/uL MPV 9.8 (9.4-12.3) fL Immature Gran % (Auto) 0.4 (0.0-0.4) % Neut % (Auto) 64.1 (45-73) % Lymph % (Auto) 24.2 (20-40) % [place] % (Auto) 8.6 (2-11) % Eos % (Auto) 2.5 (0-4) % Baso % (Auto) 0.2 (0-2) % Lymph # (Auto) 2.2 (1.2-4.9) X10*3/uL [place] # (Auto) 0.8 (0.1-1.2) X10*3/uL Eos # (Auto) 0.2 (0.0-0.4) X10*3/uL Baso # (Auto) 0.0 (0.0-0.2) X10*3/uL Abs Immat Gran (auto) 0.04 H (0.00-0.03) X10*3/uL Absolute Neuts (auto) 5.7 (2.0-8.3) x10*3/uL Absolute Nucleated RBC 0.000 (0.0-0.012) X10*3/uL Nucleated RBC % (auto) 0.0 (0.0-0.2) /100WBC Sodium 143 (135-145) mmol/L Potassium 3.2 L (3.3-5.1) mmol/L Chloride 102 (96-108) mmol/L Carbon Dioxide 30 H (22-29) mmol/L Anion Gap 14 (12-20) BUN 13 (9-16) mg/dL Creatinine 0.79 (0.5-1.4) mg/dL Estim Creat Clear Calc 43.0 Estimated GFR > 60 POC Glucose (60-115) mg/dL Random Glucose 119 H (60-115) mg/dL Calcium 9.8 (8.4-10.2) mg/dL Magnesium 1.5 L (1.6-2.6) mg/dL Total Bilirubin 1.0 (0.0-1.0) mg/dL Direct Bilirubin 0.2 (0.0-0.5) mg/dL AST 14 (5-31) U/L ALT 19 (0-31) U/L Alkaline Phosphatase 92 (39-117) U/L Troponin I High Sens (<3.5-17.0) ng/L Total Protein 6.5 (6.5-8.0) g/dL Albumin 4.0 (3.5-5.0) g/dL Urine Color Yellow Urine Appearance Clear Urine pH 7.0 (5.0-9.0) Ur Specific [place] 1.010 (1.005-1.025) Urine Protein Negative (Neg-Trace) mg/dL Urine Glucose (UA) Negative (Negative) mg/dL Urine Ketones Negative (Negative) mg/dL Urine Blood Negative (Negative) Urine Nitrite Negative (Negative) Ur Leukocyte Esterase Negative (Negative) 02/17/23 02/17/23 Range/Units 19:53 20:52 WBC (4.8-10.8) X10*3/uL RBC (4.20-5.50) X10*6/uL Hgb (12.0-16.0) g/dl Hct (37.0-47.0) % MCV (80.0-98.0) fL MCH (27.0-33.0) pg MCHC (31.0-35.0) g/dl RDW (11.0-16.0) % Plt Count (160-400) X10*3/uL MPV (9.4-12.3) fL Immature Gran % (Auto) (0.0-0.4) % Neut % (Auto) (45-73) % Lymph % (Auto) (20-40) % [place] % (Auto) (2-11) % Eos % (Auto) (0-4) % Baso % (Auto) (0-2) % Lymph # (Auto) (1.2-4.9) X10*3/uL [place] # (Auto) (0.1-1.2) X10*3/uL Eos # (Auto) (0.0-0.4) X10*3/uL Baso # (Auto) (0.0-0.2) X10*3/uL Abs Immat Gran (auto) (0.00-0.03) X10*3/uL Absolute Neuts (auto) (2.0-8.3) x10*3/uL Absolute Nucleated RBC (0.0-0.012) X10*3/uL Nucleated RBC % (auto) (0.0-0.2) /100WBC Sodium (135-145) mmol/L Potassium (3.3-5.1) mmol/L Chloride (96-108) mmol/L Carbon Dioxide (22-29) mmol/L Anion Gap (12-20) BUN (9-16) mg/dL Creatinine (0.5-1.4) mg/dL Estim Creat Clear Calc Estimated GFR POC Glucose 118 H (60-115) mg/dL Random Glucose (60-115) mg/dL Calcium (8.4-10.2) mg/dL Magnesium (1.6-2.6) mg/dL Total Bilirubin (0.0-1.0) mg/dL Direct Bilirubin (0.0-0.5) mg/dL AST (5-31) U/L ALT (0-31) U/L Alkaline Phosphatase (39-117) U/L Troponin I High Sens < 2.7 (<3.5-17.0) ng/L Total Protein (6.5-8.0) g/dL Albumin (3.5-5.0) g/dL Urine Color Urine Appearance Urine pH (5.0-9.0) Ur Specific [place] (1.005-1.025) Urine Protein (Neg-Trace) mg/dL Urine Glucose (UA) (Negative) mg/dL Urine Ketones (Negative) mg/dL Urine Blood (Negative) Urine Nitrite (Negative) Ur Leukocyte Esterase (Negative) <Nico Lynch MD - Last Filed: 02/17/23 22:25> Independent Interpretation I performed an independent interpretation of an: EKG (Normal sinus rhythm heart rate 74, no acute ST elevations or depressions, 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 There is also poor precordial progression suggestive of an old anteroseptal wall ND.) and CT Scan (HEAD: NAD) <Nico Lynch MD - Last Filed: 02/17/23 22:25> Radiology Impression Discussion of test interpretation with radiology: I have reviewed the radiologist's reading. ( CT/CT head/brain wo IV con IMPRESSION: Generalized atrophy and nonspecific periventricular white matter disease. Age-indeterminate left thalamic lacunar infarct. Dictated By:Adele Cm MDSigned By:<Electronically signed by Adele Cm MD in [place]>02/17/23 1621) <Nico Lynch MD - Last Filed: 02/17/23 22:25> Tests considered The following testing was considered but not selected: Chest x-ray <Nico Lynch MD - Last Filed: 02/17/23 22:25> Prescription Management I considered prescription management with: Pain Medication and Other (Antihypertensive medication) <Nico Lynch MD - Last Filed: 02/17/23 22:25> Chronic Conditions Patient?s care impacted by: Diabetes and Hypertension <Nico Lynch MD - Last Filed: 02/17/23 22:25> Discharge Plan Discharge Clinical Impression: Hypertensive urgency, Hypokalemia, Hypomagnesemia, Lacunar infarction <MEDARDO Bojorquez - Last Filed: 02/17/23 14:20> Patient Disposition: Still a Patient <MEDARDO Bojorquez - Last Filed: 02/17/23 14:20> Instructions: Hypokalemia (ED), Hypertensive Crisis (ED), Hypomagnesemia (ED), DASH Eating Plan (ED) <MEDARDO Bojorquez - Last Filed: 02/17/23 14:20> Prescriptions: New amlodipine 5 mg tablet 5 mg PO DAILY Qty: 7 0RF No Action latanoprost 0.005 % Drops 1 drp OPHTHALMIC (EYE) QPM atorvastatin 40 mg tablet 1 tab PO DAILY metformin 500 mg tablet 1 tab PO BID carvedilol 6.25 mg tablet 1 tab PO BID lisinopril-hydrochlorothiazide 20-12.5 mg tablet 1 tab PO DAILY levothyroxine [Synthroid] 75 mcg tablet 1 tab PO DAILY pantoprazole 40 mg tablet,delayed release (DR/EC) 1 tab PO DAILY dorzolamide 2 % drops 1 drp ophthalmic (eye) Q12H insulin degludec [Tresiba FlexTouch U-100] 100 unit/mL (3 mL) insulin pen 44 unit subcut DAILY Ozempic 0.25 mg or 0.5 mg(2 mg/1.5 mL) pen injector 0.5 mg subcut QWEEK aspirin 81 mg Tablet,Delayed Release (Dr/Ec) 81 mg PO DAILY <MEDARDO Bojorquez - Last Filed: 02/17/23 14:20> Referrals: Elida Sepulveda NP [Primary Care Provider] - 1 day <MEDARDO Bojorquez - Last Filed: 02/17/23 14:20>
--- NOTE | 2023-02-17 14:18 | ECG_ITS ---
Test Reason : HYPERTENSIVE URGENCY Blood Pressure : / mmHG Vent. Rate : 074 BPM Atrial Rate : 074 BPM P-R Int : 164 ms QRS Dur : 084 ms QT Int : 410 ms P-R-T Axes : 054 008 054 degrees QTc Int : 455 ms Normal sinus rhythm Inferior infarct , age undetermined Possible Anterior infarct , age undetermined Abnormal ECG When compared with ECG of 29-APR-2003 11:06, Premature supraventricular complexes are no longer Present Inferior infarct is now Present Referred By: Vivi Lopez Electronically Signed By:FAUSTO JACOBSON
[2023-02-17 14:50] LABS: MANUAL DIFF FLAG NO
[2023-02-17 14:51] LABS: Basophils Percent Auto 0.2 % (0-2); Eosinophils Absolute Auto 0.2 X10*3/uL (0.0-0.4); Eosinophils Percent Auto 2.5 % (0-4); Hematocrit 39.4 % (37.0-47.0); Hemoglobin 13.3 g/dl (12.0-16.0); Imm Gran Abs Auto 0.04 X10*3/uL (0.00-0.03); Imm Gran Pct Auto 0.4 % (0.0-0.4); Lymphocytes Absolute Auto 2.2 X10*3/uL (1.2-4.9); Lymphocytes Percent Auto 24.2 % (20-40); Mean Corpuscular HGB Conc 33.8 g/dl (31.0-35.0); Mean Corpuscular Hemoglobin 28.9 pg (27.0-33.0); Mean Corpuscular Volume 85.7 fL (80.0-98.0); Mean Platelet Volume 9.8 fL (9.4-12.3); Monocytes Absolute Auto 0.8 X10*3/uL (0.1-1.2); Monocytes Percent Auto 8.6 % (2-11); Neutrophils Absolute Auto 5.7 x10*3/uL (2.0-8.3); Neutrophils Percent Auto 64.1 % (45-73); Platelet Count 271 X10*3/uL (160-400); Red Cell Distribution Width 12.3 % (11.0-16.0); White Blood Count 8.9 X10*3/uL (4.8-10.8)
[2023-02-17 15:05] LABS: Alanine Aminotransferase 19 U/L (0-31); Alkaline Phosphatase 92 U/L (39-117); Anion Gap 14 (12-20); Aspartate Amino Transferase 14 U/L (5-31); Bilirubin Direct 0.2 mg/dL (0.0-0.5); Blood Urea Nitrogen 13 mg/dL (9-16); Calcium 9.8 mg/dL (8.4-10.2); Carbon Dioxide 30 mmol/L (22-29); Chloride 102 mmol/L (96-108); Estimated Glomerular Filt Rate > 60; Glucose Random 119 mg/dL (60-115); Magnesium 1.5 mg/dL (1.6-2.6); Potassium 3.2 mmol/L (3.3-5.1); Sodium 143 mmol/L (135-145); Total Protein 6.5 g/dL (6.5-8.0)
[2023-02-17 15:09] LABS: Appearance Urine Clear; Color Urine Yellow; Glucose Urine UA Negative (Negative); Leukocyte Esterase Urine Negative (Negative); Nitrite Urine Negative (Negative); Urine Blood Negative (Negative); Urine Ketones Negative (Negative); Urine Protein Negative (Neg-Trace)
[2023-02-17 19:47] VITALS: BP 216/99; PULSE 78; RESP 18; TEMP 36.6; O2SAT 96
[2023-02-17 19:56] LABS: Glucose, Whole Blood 118 mg/dL (60-115)
[2023-02-17 20:12] VITALS: BP 206/72; PULSE 69; RESP 18; TEMP 36.8; O2SAT 95
[2023-02-17 20:19] VITALS: TEMP 34.9
[2023-02-17] MEDS: Potassium Chloride Packet 20 MEQ PACKET 40 MEQ PO (20:25)
[2023-02-17] MEDS: Magnesium Oxide 400 MG TABLET PO (20:25)
[2023-02-17 20:50] VITALS: BP 200/70; PULSE 66; RESP 15; O2SAT 96
[2023-02-17] MEDS: lisinopriL 10 MG TABLET PO (20:50)
[2023-02-17] MEDS: Metoprolol Tartrate 25 MG TABLET PO (20:50)
[2023-02-17 21:34] LABS: Troponin-I High Sensitivity < 2.7 ng/L (<3.5-17.0)
[2023-02-17 22:28] VITALS: BP 203/84; PULSE 111; RESP 16; O2SAT 96
[2023-02-17] MEDS: amLODIPine Besylate 5 MG TABLET PO (22:28)
--- NOTE | 2023-02-17 23:53 | PC.NURSE ---
Reviewed discharge instruction with pt, pt verbalized understanding, Notified NISHANT Rodríguez
== END 2023-02-17 23:56 | disposition home or self-care (01) ==
PROVIDERS: Physician Assistant; Emergency Provider Emergency Medicine; PCP Nurse Practitioner Adult Health
DX: I16.0 Hypertensive urgency (principal); E87.6 Hypokalemia; E83.42 Hypomagnesemia; I63.81 Other cerebral infarction due to occlusion or stenosis of small artery; E11.9 Type 2 diabetes mellitus without complications; I10 Essential (primary) hypertension; E78.00 Pure hypercholesterolemia, unspecified; Z87.891 Personal history of nicotine dependence; Z79.82 Long term (current) use of aspirin; Z79.02 Long term (current) use of antithrombotics/antiplatelets; Z79.4 Long term (current) use of insulin; Z79.899 Other long term (current) drug therapy
CPT/HCPCS: 36415; 70450; 80048; 80076; 81003; 82947; 83735; 84484; 85025; 93005; 99284

== ENCOUNTER 2023-02-27 08:11 | Outpatient (REF) | payer MEDICARE, SELFPAY ==
[2023-02-27 08:41] LABS: Hematocrit 42.4 % (37.0-47.0); Mean Corpuscular Hemoglobin 29.2 pg (27.0-33.0); Mean Corpuscular Volume 88.3 fL (80.0-98.0); Mean Platelet Volume 10.5 fL (9.4-12.3); Platelet Count 283 X10*3/uL (160-400); Red Cell Distribution Width 12.3 % (11.0-16.0); White Blood Count 10.4 X10*3/uL (4.8-10.8)
[2023-02-27 08:56] LABS: Iron 82 mcg/dL (30-160); Percent Iron Saturation 28 % (15-50); Total Iron Binding Capacity 289 mcg/dL (228-428); Unsaturated Iron Binding 207 ug/dL
[2023-02-27 09:11] LABS: Ferritin 209 ng/mL (10-250)
== END 2023-02-27 08:12 | disposition home or self-care (01) ==
LOC: HO.LAB 08:11
PROVIDERS: PCP Nurse Practitioner Adult Health; Visit Provider Internal Medicine
DX: E61.1 Iron deficiency (principal)
CPT/HCPCS: 36415; 82728; 83540; 85027